=== PATIENT | female | born 1990 | race African-American/Black ===

== ENCOUNTER 2017-01-24 08:11 | Emergency (ER) | payer OTHER ==
[2017-01-24 08:25] VITALS: BP 109/70
[2017-01-24] MEDS ORDERED: FLUORESCEIN 1MG EYE STRIP. OS ONE (08:30)
[2017-01-24] MEDS ORDERED: TETRACAINE 0.5% OPHTH SOLUTION 4ML BOTTLE. OS ONE (08:30)
--- NOTE | 2017-01-24 08:52 | PHYS DOC ---
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 On the patient was trying to get something apart and her left hand slipped and struck her in the left eye. It just hurt for a second, it did not continue to hurt. She didn't think much of it. On Wednesday her eye did not hurt. She did notice a little light sensitivity to bright light. Yesterday, Wednesday, her eye was more sensitive to light and also had a general slight ache. She noticed increased tearing. Today, the symptoms are worse. Patient's vision seems blurry. She never had a sensation of a foreign body. She does not wear contact lenses. She does wear glasses. Review of Systems Review of Systems Eyes: As in history of present illness HENT: Denies nasal congestion tearing or symptoms in the right eye Current Medications Current Medications Current Medications Medications (Trade) Dose Ordered Sig/Cornell Start Time Stop Time Status Last Admin Dose Admin Fluorescein Sodium (Ful-Ester 1mg) 1 strip 1X ONCE 01/24/17 08:30 8 08:31 DC Tetracaine HCl (Tetracaine) 1 drop 1X ONCE 01/24/17 08:30 8 08:31 DC Allergies Allergies Allergies Coded Allergies Type Severity Reaction Last Updated Verified No Known Drug Allergies 01/15/16 No Physical Exam Physical Exam Constitutional: Well developed, well nourished, no acute distress, non-toxic appearance. Alert, mentating normally. HENT: Normocephalic, atraumatic, bilateral external ears normal, nose normal. [ ] Eyes: PERRLA, EOMI, right conjunctiva normal, no discharge. Left eye with mild diffuse conjunctival injection, no discharge or tearing noted. Left eye has pain with direct and consensual light challenge. Left eye appears otherwise normal to inspection. Pupil is reactive normally. Fluoroscein staining: No corneal uptake on the left. Left eye slit lamp exam: Discomfort with lowest level of light. Cornea appears normal. Anterior chamber appears clear. I do not see Cell, Flare, or Hyphema. Neck: Normal range of motion, no stridor. [] Skin: Warm, dry, no erythema, no rash. [] Extremities: No tenderness, no cyanosis, no clubbing, ROM intact, no edema. [] Neurologic: Alert and oriented X 3, normal motor function, normal sensory function, no focal deficits noted. [] Current Patient Data Vital Signs Vital Signs Date Time Temp Pulse Resp B/P (MAP) Pulse Ox O2 Delivery O2 Flow Rate FiO2 01/24/17 08:25 98.1 81 16 99 Room Air EKG EKG [] Radiology/Procedures Radiology/Procedures [] Course & Med Decision Making Course & Med Decision Making Pertinent Labs and Imaging studies reviewed. (See chart for details) Visual acuity with glasses right eye 20/40 left eye 20/25 Patient's exam is relatively normal except for direct and consensual photophobia in the left eye. It does not sound like she had a corneal abrasion and there is no evidence of one today. I believe she has some low-level iritis from the blow to her eye on . I discussed the case with Dr. Granda, ophthalmology, who will see the patient in the office tomorrow. He recommended steroid eyedrops and dilating eye drops at this time for the diagnosis of likely iritis. See instructions for plan. [] Dragon Disclaimer Dragon Disclaimer This chart was dictated in whole or in part using Voice Recognition software in a busy, high-work load, and often noisy Emergency Department environment. It may contain unintended and wholly unrecognized errors or omissions. Departure Departure: Impression: Primary Impression: Iritis of left eye Disposition: HOME, SELF-CARE Condition: STABLE Referrals: BERTRAM WAKEFIELD DO (PCP) EAMON GRANDA DO Patient Instructions: Iritis, [id number] Additional Instructions: One drop of homatropine every 12 hours. This is to dilate your pupil. One drop of prednisolone acetate 4 times a day. This is for inflammation. If your eye continues to be sore and achy, you may take ibuprofen. Also, stay out of bright light. See phone number for erector operator here in [place]. I discussed your case with him. He can see you tomorrow in the office. If the eye doctor on post is able to see you tomorrow morning, that would be fine. If not, he will need to go through primary care to get a referral to see the erector operator. Either way , I would like for you to be rechecked tomorrow. OSMIN ESQUIVEL MD Jan 24, 2017 08:52
[2017-01-24] MEDS ORDERED: prednisoLONE ACETATE 1% OPHTH SUSPENSION 5ML BOTTLE. OS ONE (09:00)
[2017-01-24] MEDS ORDERED: HOMATROPINE OS ONE (09:00)
== END 2017-01-24 08:55 | disposition home or self-care (01) ==
LOC: ER 08:11
DX: H20.9 Unspecified iridocyclitis (principal)
CPT/HCPCS: 99283; 99284